=== PATIENT | male | born 1965 | race Caucasian/White ===

== ENCOUNTER 2019-07-10 16:00 | Emergency (ER) | payer BC ==
[~2019-07-10] VITALS: Ht 188 cm; Wt 115.7 kg
[~2019-07-10 16:00] MED LIST: ACETAMINOPHEN-1 EAC1 PO; AMOXICILLIN 50500 M1 PO; AMOXICILLIN500 M1 PO; AMOXICILLIN875 MG PO; ASPIRIN EC81 M1; CADUET 10 MG-11 EACH PO; CALAN; CLEOCIN HCL300 MG PO; COREG CR20 MG PO; FLEXERIL PO; HYDROCHLOROTH12.5 MG PO; LISINOPRIL; LOPRESSOR; METFORMIN HCL500 MG PO; NORCO 5-325 TA1 EACH PO; PENICILLIN VK250 MG PO; VICODIN 5-5001 EACH PO; ZPAK PO
[2019-07-10] MEDS ORDERED: NORCO 5-325 TA1 EAC1 PO (16:41)
[2019-07-10] MEDS ORDERED: PENICILLIN VK500 M1 PO (16:41)
[2019-07-10 16:49] VITALS: BP 174/79
== END 2019-07-10 16:50 | disposition home or self-care (01) ==
LOC: M.ERS 16:00
DX: K02.9 Dental caries, unspecified (principal); I10 Essential (primary) hypertension; E78.00 Pure hypercholesterolemia, unspecified; E11.9 Type 2 diabetes mellitus without complications; F17.210 Nicotine dependence, cigarettes, uncomplicated; Z95.5 Presence of coronary angioplasty implant and graft; Z88.6 Allergy status to analgesic agent; Z88.8 Allergy status to other drugs, medicaments and biological substances